=== PATIENT | female | born 1990 | race Two or more races ===

== ENCOUNTER 2024-10-11 08:50 | Outpatient (RCR) | payer MEDICAID, SELFPAY ==
[2024-10-04 10:20] VITALS: BP 104/53; PULSE 63; RESP 18; TEMP 36.9; O2SAT 100; BMI 25.6
[2024-10-04] MEDS: PEN G BENZ (Bicillin LA) 2.4 MMU/4 ML SYRG IM (10:45)
[2024-10-04 11:06] VITALS: BP 108/60; PULSE 66; RESP 18; TEMP 37; O2SAT 100
[2024-10-11 08:40] VITALS: BP 110/58; PULSE 74; RESP 18; TEMP 36.3; O2SAT 99; BMI 25.5
[2024-10-11] MEDS: PEN G BENZ (Bicillin LA) 2.4 MMU/4 ML SYRG IM (09:02)
== END 2024-10-16 23:59 | disposition home or self-care (01) ==
LOC: SFLEX 08:50
PROVIDERS: PCP Nurse Practitioner Family; Referring Provider Specialist; Visit Provider Specialist
PROC: (CPT 96372; principal; 2024-10-04 09:00)
DX: A53.9 Syphilis, unspecified (principal); Z34.81 Encounter for supervision of other normal pregnancy, first trimester
CPT/HCPCS: 96372; J0561

== ENCOUNTER → 2024-10-18 | Outpatient (CLI) | payer MEDICAID, SELFPAY ==
[2024-10-18 09:25] VITALS: BP 119/73; PULSE 93; RESP 16; TEMP 36.3; O2SAT 98; BMI 25.4
[2024-10-18] MEDS: PEN G BENZ (Bicillin LA) 2.4 MMU/4 ML SYRG IM (09:29)
[2024-10-18 09:49] VITALS: BP 98/64; PULSE 73; RESP 16; TEMP 36.3; O2SAT 98
== END | disposition home or self-care (01) ==
PROVIDERS: PCP Nurse Practitioner Family; Referring Provider Specialist; Visit Provider Specialist
PROC: (CPT 96372; principal; 2024-10-18 09:00)
DX: A53.9 Syphilis, unspecified (principal); Z34.81 Encounter for supervision of other normal pregnancy, first trimester
CPT/HCPCS: 96372; J0561

== ENCOUNTER 2025-04-16 07:49 | Observation (INO) | payer MEDICAID, SELFPAY ==
[2025-04-16 07:55] VITALS: BMI 27.1
[2025-04-16 07:56] VITALS: BP 96/51; PULSE 88; RESP 18; RESP 99; TEMP 36.6
[2025-04-16 08:00] VITALS: BP 96/51; PULSE 88
== END 2025-04-16 08:40 | disposition home or self-care (01) ==
PROVIDERS: Admitting Provider Specialist; Visit Provider Specialist
DX: O47.1 False labor at or after 37 completed weeks of gestation (principal); Z3A.40 40 weeks gestation of pregnancy
CPT/HCPCS: 59025; 59899

== ENCOUNTER 2025-04-16 20:00 | Inpatient (IN) | payer MEDICAID, SELFPAY ==
[2025-04-16 20:10] VITALS: BP 113/77; PULSE 101; RESP 18; RESP 99; TEMP 36.4
--- NOTE | 2025-04-16 20:47 | ESHP_ITS ---
Documentation for date of: 04/16/25 OB Labor/Induct. HPI History of Present Illness : 3 Term pregnancies: 2 pregnancies: 0 Living children: 2 History of Abortions: Spontaneous and Elective: 0 History of sections: No History of : No History of present illness: HISTORY OF PRESENT ILLNESS: This is a 35-year-old 4, para 2-0-1-2 with due date of 04/14 with intrauterine at 40 weeks and 2 days who presents for labor pains. She has a hx of small for gestational age. The patient had an ultrasound with [facility] on 03/05 showing overall growth at the 6th percentile with the abdominal circumference at the 7th percentile. The patient subsequently has been undergoing twice weekly NSTs and weekly AFIs which have been reassuring. She had a maternal medicine ultrasound on 03/24 which showed overall growth at the 12th percentile with abdominal circumference at the 35th percentile and M recommended delivery at 39 weeks but pt declined. Patient denies any leaking or bleeding. She reports normal movement. She has strong contractions. MFM did see on their ultrasound a maternal left dermoid cyst measuring 3.4 cm. The patient has not had any problems with pelvic pain on the left side during her . She has had iron deficiency anemia for which she takes supplemental iron. She has also been treated for a urinary tract infection due to E. coli multiple times in the . Her history also is significant for syphilis. Syphilis diagnosed on 09/26/24. At the time, the patient underwent treatment with Bicillin 2.4 million international units IM weekly x3. Repeat RPR titer on 02/04/25 was 1:1 consistent with adequate treatment and a serofast state. Patient was also treated for chlamydia on 09/30/24. MEDICATIONS: 1. multivitamin 1 p.o. daily. 2. Ferrous sulfate 325 mg 1 p.o. daily. 3. Cefpodoxime 200 mg 1 p.o. b.i.d. for urinary tract infection. PAST MEDICAL HISTORY: Recurrent urinary tract infections, left ovary dermoid cyst, iron deficiency anemia, syphilis treated 09/2024, low-grade squamous intraepithelial lesion on Pap smear, chlamydia infection, gallstones. OBSTETRIC HISTORY: 2010, 7 weeks spontaneous AB, no D and C. 2014, 40-week nor mal vaginal delivery, 6 pound 4 ounce female, no complications. 2016, 40-week, normal vaginal delivery, 7 pound 8 ounce male, no complications. PAST SURGICAL HISTORY: Cholecystectomy. PHYSICAL EXAMINATION: VITAL SIGNS: Blood pressure 97/59, heart rate 88, respirations 18, temperature 98.6. HEENT: Oropharynx and sclerae clear. LUNGS: Clear to auscultation bilaterally. HEART: Regular rate and rhythm. ABDOMEN: Gravid, term size, consistent with estimated weight 7.5 pounds. PELVIC: See RN notes. EXTREMITIES: Nontender. SKIN: No gross rashes or lesions. NEUROLOGIC: No focal deficit. ASSESSMENT AND PLAN: Intrauterine at 40 weeks and 2 days, in Labor, borderline small for gestational age, induction of labor, anticipate spontaneous vaginal delivery. Informed consent was obtained, the patient made aware of the risks, complications, alternatives, and benefits of the proposed procedure and she agrees. She is aware of the risk of operative vaginal delivery and delivery and agrees with these modes of delivery if indicated. Past Medical History Surgical History SURGICAL: Negative Section Meds Home Medications and Allergies Allergies Allergy/AdvReac Type Severity Reaction Status Date / Time No Known Allergies Allergy Verified 10/11/24 09:08 OB Exam Physical Exam Vital signs: Pulse BP 101 H 113/77 04/16/25 20:10 04/16/25 20:10
[2025-04-16 20:56] VITALS: BMI 27.1
[2025-04-16 21:00] VITALS: TEMP 36.9
[2025-04-16 21:57] LABS: Basophils # (Auto) 0.0 Thou/mm3 (0.0-0.2); Basophils % (Auto) 0 % (0-2.5); Eosinophils # (Auto) 0.1 Thou/mm3 (0.0-0.5); Eosinophils % (Auto) 1 % (0-10); Hematocrit 29.6 % (36.0-46.0); Hemoglobin 9.8 g/dL (12.0-16.0); Immature Granulocytes Auto 0.03 Thou/mm3 (0.00-0.00); Lymphocytes # (Auto) 1.8 Thou/mm3 (1.0-4.8); Lymphocytes % (Auto) 19 % (10-50); Mean Corpuscular HGB Conc 33.1 g/dl (31.0-37.0); Mean Corpuscular Hemoglobin 29.3 pg (25.0-35.0); Mean Corpuscular Volume 88 fL (80-100); Monocytes # (Auto) 0.7 Thou/mm3 (0.0-0.8); Monocytes % (Auto) 8 % (0-12); Neutrophils # (Auto) 6.5 Thou/mm3 (1.8-7.7); Neutrophils % (Auto) 71 % (37-80); Nucleated Red Blood Cell # 0.00 Thou/mm3 (0.00-0.00); Nucleated Red Blood Cell % 0 /100 WBC (0); Platelet Count 263 Thou/mm3 (140-440); RDW Standard Deviation 49.5 fL (36.4-46.3); Red Blood Count 3.35 Miln/mm3 (4.00-5.20); White Blood Count 9.1 Thou/mm3 (3.6-11.0)
[2025-04-16 23:26] VITALS: BP 109/69; PULSE 83
[2025-04-16 23:38] LABS: Syphilis Reactive (Nonreactive)
[2025-04-16 23:39] LABS: MHATP/TP-PA* See Sep Rpt
[2025-04-17] VITALS (88 sets, daily range): BP systolic 0–119; BP diastolic 0–90; PULSE 52–92; RESP 16–18; TEMP 36.5–37.2; O2SAT 90–100
[2025-04-17] MEDS: RINGERS LACTATED 1000 ML 1,000 ML 100 ML IV (03:53)
--- NOTE | 2025-04-17 06:23 | PD.LDPN ---
Documentation for date of: 04/17/25 OB Labor Progress Note Pain Control Comments: Declines Pelvic Exam Dilation (cm): 3 Effacement (%): 60 station: -2 Amniotic membrane status: Intact Contractions Monitor mode: External Contraction frequency: 3-6 Contraction pattern: Coupling Contraction intensity: Mild Status status: Category l Assessment and Plan Comments: Augment with Pitocin
[2025-04-17] MEDS: OXYTOCIN in NS 30 units 30 UNIT/500 ML BAG IV (07:25)
--- NOTE | 2025-04-17 07:54 | PD.LDPN ---
Documentation for date of: 04/17/25 OB Labor Progress Note Pelvic Exam Dilation (cm): 5 Effacement (%): 80 station: -2 Amniotic membrane status: Ruptured Contractions Monitor mode: External Contraction frequency: 3-5 Contraction pattern: Coupling Contraction intensity: Moderate Status status: Category l Comments: After pitocin started had a prolonged decel which resovled after pitocin discontinued. Assessment and Plan Comments: Hold Pitocin for now
[2025-04-17] MEDS: fentaNYL CIT INJ 50 mCg/ML AMP 2ML 100 MCG IVP ×2 (08:37→09:53)
--- NOTE | 2025-04-17 10:54 | ESDS_ITS ---
DS: Providers Provider Date of admission: 04/16/25 20:31 Primary care physician: Physician No Primary/Family Admitting Provider: Shan Deal MD Attending Provider on Admission: Shan Deal MD Attending Provider on DC: Shan Deal MD Discharging Provider: Shan Deal MD DS: Diagnosis Problem List Completed Was Problem List Reviewed/Reconciled?: Yes Summary/Hosp Course Brief History: HISTORY OF PRESENT ILLNESS: This is a 35-year-old 4, para 2-0-1-2 with due date of 04/14 with intrauterine at 40 weeks and 2 days who presents for labor pains. She has a hx of small for gestational age. The patient had an ultrasound with [facility] on 03/05 showing overall growth at the 6th percentile with the abdominal circumference at the 7th percentile. The patient subsequently has been undergoing twice weekly NSTs and weekly AFIs which have been reassuring. She had a maternal medicine ultrasound on 03/24 which showed overall growth at the 12th percentile with abdominal circumference at the 35th percentile and M recommended delivery at 39 weeks but pt declined. Patient denies any leaking or bleeding. She reports normal movement. She has strong contractions. MFM did see on their ultrasound a maternal left dermoid cyst measuring 3.4 cm. The patient has not had any problems with pelvic pain on the left side during her . She has had iron deficiency anemia for which she takes supplemental iron. She has also been treated for a urinary tract infection due to E. coli multiple times in the . Her history also is significant for syphilis. Syphilis diagnosed on 09/26/24. At the time, the patient underwent treatment with Bicillin 2.4 million international units IM weekly x3. Repeat RPR titer on 02/04/25 was 1:1 consistent with adequate treatment and a serofast state. Patient was also treated for chlamydia on 09/30/24. MEDICATIONS: 1. multivitamin 1 p.o. daily. 2. Ferrous sulfate 325 mg 1 p.o. daily. 3. Cefpodoxime 200 mg 1 p.o. b.i.d. for urinary tract infection. PAST MEDICAL HISTORY: Recurrent urinary tract infections, left ovary dermoid cyst, iron deficiency anemia, syphilis treated 09/2024, low-grade squamous intraepithelial lesion on Pap smear, chlamydia infection, gallstones. OBSTETRIC HISTORY: 2010, 7 weeks spontaneous AB, no D and C. 2014, 40-week normal vaginal delivery, 6 pound 4 ounce female, no complications. 2016, 40-week, normal vaginal delivery, 7 pound 8 ounce male, no complications. PAST SURGICAL HISTORY: Cholecystectomy. PHYSICAL EXAMINATION: VITAL SIGNS: Blood pressure 97/59, heart rate 88, respirations 18, temperature 98.6. HEENT: Oropharynx and sclerae clear. LUNGS: Clear to auscultation bilaterally. HEART: Regular rate and rhythm. ABDOMEN: Gravid, term size, consistent with estimated weight 7.5 pounds. PELVIC: See RN notes. EXTREMITIES: Nontender. SKIN: No gross rashes or lesions. NEUROLOGIC: No focal deficit. ASSESSMENT AND PLAN: Intrauterine at 40 weeks and 2 days, in Labor, borderline small for gestational age, induction of labor, anticipate spontaneous vaginal delivery. Informed consent was obtained, the patient made aware of the risks, complications, alternatives, and benefits of the proposed procedure and she agrees. She is aware of the risk of operative vaginal delivery and delivery and agrees with these modes of delivery if indicated. Time Spent with Patient Time attestation: Total time spent providing and/or coordinating discharge services: Exam Vital Signs Temp Pulse Resp BP Pulse Ox 98.6 F 73 18 97/55 L 100 04/17/25 09:17 04/17/25 10:50 04/17/25 09:17 04/17/25 10:50 04/17/25 10:53 Discharge Plan Plan Patient Disposition: HOME (Self Care) Patient condition on transfer: Stable Prescriptions/Referrals Prescriptions/Med Rec: New ibuprofen 600 mg tablet 600 mg PO Q6H PRN (Reason: pain) Qty: 30 0RF Continued Classic 28 mg iron- 800 mcg tablet 1 tab PO QDAY Patient Comments: TAKE 1 TABLET BY MOUTH EVERY DAY Discontinued ondansetron 4 mg tablet,disintegrating 8 mg PO Q8HR PRN (Reason: nausea and vomiting) Qty: 10 0RF Referrals: No Primary/Family,Physician [Primary Care Provider] Patient/Caregiver Discharge Instructions Discharge Activity: activity as tolerated Other Discharge Activity Instructions:: Follow up office 6 weeks. Print Language: Thai Stand Alone Forms: [facility]se Award Info., Patient Portal Info Letter Discharge Order Discharge Orders: Discharge (Routine); Ordered 04/18/25 Ordered By: Shan Deal Planned Discharge Date 04/18/25
[2025-04-17] MEDS: OXYTOCIN in NS 20 units 20 UNIT/1,000 ML BAG 125 UNIT IV (11:14)
[2025-04-17 12:52] LABS: Basophils # (Auto) 0.0 Thou/mm3 (0.0-0.2); Basophils % (Auto) 0 % (0-2.5); Eosinophils # (Auto) 0.0 Thou/mm3 (0.0-0.5); Eosinophils % (Auto) 0 % (0-10); Hematocrit 28.6 % (36.0-46.0); Hemoglobin 9.2 g/dL (12.0-16.0); Immature Granulocytes Auto 0.06 Thou/mm3 (0.00-0.00); Lymphocytes # (Auto) 1.0 Thou/mm3 (1.0-4.8); Lymphocytes % (Auto) 9 % (10-50); Mean Corpuscular HGB Conc 32.2 g/dl (31.0-37.0); Mean Corpuscular Hemoglobin 29.2 pg (25.0-35.0); Mean Corpuscular Volume 91 fL (80-100); Monocytes # (Auto) 0.5 Thou/mm3 (0.0-0.8); Monocytes % (Auto) 5 % (0-12); Neutrophils # (Auto) 9.8 Thou/mm3 (1.8-7.7); Neutrophils % (Auto) 86 % (37-80); Nucleated Red Blood Cell # 0.00 Thou/mm3 (0.00-0.00); Nucleated Red Blood Cell % 0 /100 WBC (0); Platelet Count 211 Thou/mm3 (140-440); RDW Standard Deviation 50.9 fL (36.4-46.3); Red Blood Count 3.15 Miln/mm3 (4.00-5.20); White Blood Count 11.5 Thou/mm3 (3.6-11.0)
[2025-04-17] MEDS: BENZO/LANO/ALOE (Dermoplast) 60 GM CAN 1 SPRAY TOP (12:53)
--- NOTE | 2025-04-18 03:16 | PD.LDDELS ---
Shoulder Dystocia General Time head delivered:: 10:35 Traction performed:: none at any time Maneuvers/Procedures Karlene: Order Maneuver Performed:: 1 Time begun:: 10:35 Time ended:: 10:36 Performed by:: RN suprapubic pressure: Order Maneuver Performed:: 2 Time begun:: 10:35 Time ended:: 10:36 Performed by:: RN Was fundal Pressure applied? Fundal pressure applied:: No Shoulder Under Symphisis at head delivery:: right Immediate [place] Assessment Immediate assessment:: no apparent injury Surgical Team Notified Surgical team notified:: Yes Vacuum Assisted Delivery General Patient Counseled by physician:: Yes Informed consent to patient:: Yes Estimated weight:: 7 lb 8 oz Cervical dilation:: fully dilated station:: +3 position:: OA Molding:: No Caput:: Yes Vacuum Application Vacuum type:: Mityvac Vacuum application:: flexing median Total vacuum time (min):: 1 Maximum pressure (cm Hg):: 50 Cup Placement Flexion point identified:: Yes Cup approp. for head position:: Yes Maternal tissue excluded:: Yes Vacuum Procedure Number of pulls (contractions):: 1 Number of pop-offs:: 0 Recommended range maintained:: Yes Vacuum reduced between pulls:: Yes Advancement made each pull:: Yes Vacuum successful:: Yes Immediate Evaluation Immediate assessment:: no apparent injury Additional Comments Additional comments: Vacuum applied for prolonged decel trending to bradycardia compounded by poor maternal expulsive effort. Data ([place]) Data Hx Section: No : 4 Term: 2 : 0 Livin Abortions: Spontaneous & Theraputic: 0 Delivery Data ([place]) Labor Data Initiation of labor: Spontaneous Induction/Augmentation Agent: Artificial ROM ROM date: 04/17/25 ROM time: 06:50 Amniotic membrane rupture type: Spontaneous Amniotic fluid description: Clear Delivery Data EDC: 04/14/25 EDC calculated by:: LMP/early US confirmation Onset of labor date: 04/16/25 Onset of labor time: 18:00 Complete dilation date: 04/17/25 Complete dilation time: 10:30 delivery date: 04/17/25 [place] delivery time: 10:36 Gestational age (weeks): 40 Gestational age (days): 3 Placenta delivery date: 04/17/25 Placenta delivery time: 10:47 Stage 1 total time: Labor - Stage 1 Duration 16 hours and 30 minutes Delivered by: dr john Delivery nurse: felix Tolliverorn nurse: lynne grewal Industrial Psychology Professor at delivery: No Support person(s) at delivery: virginia dempsey Other staff at delivery: renetta Delivery Method Delivery method: Operative Vaginal Delivery Presentation: Vertex Anesthesia Type Anesthesia Type: None Placenta Placenta delivery description: Spontaneous Cord blood sent to lab: Yes cord blood collection: Cord Blood Type Episiotomy Episiotomy description: None Lacerations #1: Perineal: 2nd degree Perineal repair Sutures used for repair: 3.0 Chromic EBL Estimated blood loss (ml): 150 Umbilical Cord cord description: 3 Vessels Additional Procedures see below Complications Complications: None [place] Data ([place]) [place] Data order: 1 [place]'s gender: Female Identification band number: [id number] weight (gms): 7 lb 3.346 oz Weight (pounds): 7 lbs and 3.3 ozs length: 20.08 in 1 minute: 8 5 minutes: 9
[2025-04-18 03:52] VITALS: BP 111/73; PULSE 61; RESP 18; TEMP 36.9; O2SAT 99
--- NOTE | 2025-04-18 07:18 | ESPR_ITS ---
RE: SUPA BIGGS : 1990 DATE OF SERVICE: 04/18/2025 SUBJECTIVE: day #1. Patient denies any problem or complaints. She is voiding. She is ambulating. She is tolerating diet. She is passing flatus. She denies any excessive vaginal bleeding. She denies any dizziness or lightheadedness. She denies any chest pain, palpitations, shortness of breath or lower extremity pain. OBJECTIVE: Vital Signs: Blood pressure 111/73, heart rate 61, respiration 18, temperature is 98.4, pulse ox is 99% on room air. Lungs: Clear to auscultation bilaterally. Heart: Regular rate and rhythm. Abdomen: Fundus is firm. Extremities: Nontender. LABORATORY DATA: Hemoglobin pre-delivery is 9.8, post delivery is 9.2. ASSESSMENT: day #1 status post vacuum assisted vaginal delivery complicated by shoulder dystocia. PLAN: Discharge home. Discharge instructions given. Follow up in the office in 6 weeks. DT: 07:00:43 TT: 07:17:00 Ref: [id number] - TID: [id number]
[2025-04-18 08:05] VITALS: BP 104/67; PULSE 63; RESP 17; TEMP 36.4
[2025-04-18 16:00] VITALS: BP 108/66; PULSE 70; RESP 20; TEMP 36.5; O2SAT 99
== END 2025-04-18 18:55 | disposition home or self-care (01) | DRG 560 ==
LOC: S4SX 04-17 11:48 → S4NX 04-17 13:12
PROVIDERS: Admitting Provider Specialist; Visit Provider Specialist
DX: O48.0 Post-term pregnancy (principal); Z3A.40 40 weeks gestation of pregnancy; Z37.0 Single live birth; O76 Abnormality in fetal heart rate and rhythm complicating labor and delivery; O70.1 Second degree perineal laceration during delivery; Z87.440 Personal history of urinary (tract) infections
CPT/HCPCS: 36415; 59409; 85025; 86780; 86850; 86900; 86901; 86923; 94762; J2590; J3010; J7120; A9270